=== PATIENT | male | born 1940 | race Caucasian/White ===

== ENCOUNTER → 2018-12-23 13:29 | Outpatient (CLI) | payer MEDICARE, OTHER, SELFPAY ==
--- NOTE | 2018-12-23 | DI.CT.S_ITS ---
PROCEDURE: CT ABDOMEN PELVIS WO/W CON INDICATIONS: Elevated PSA. Gross hematuria TECHNIQUE: Optional 5 mm thick noncontrast images acquired from the diaphragm to the symphysis pubis. After the administration of intravenous contrast, 5 mm thick images acquired from the diaphragm to the symphysis pubis after a 10-minute delay. 2 mm thick coronal and sagittal reformats were then performed of the kidneys and ureters. For radiation dose reduction, the following was used: automated exposure control, adjustment of mA and/or kV according to patient size. COMPARISON: [facility], CT, KIDNEY/ URETER/BLADDER, 05/31/2014, 12:44. FINDINGS: Image quality: Excellent. Lung bases: Lung bases are clear. Heart size is normal. Urinary system: Both kidneys are normal in size, without hydronephrosis. Punctate, nonobstructing intrarenal calcification present in the lower pole of right kidney. No perinephric fat stranding. There is normal bilateral renal enhancement. Renal calyces appear normal in morphology when filled with contrast. Opacified portions of both ureters demonstrate normal caliber. Bladder wall is minimally thickened. No calcified bladder stones. The prostate gland is enlarged measuring 6.2 x 5.1 x 6.2 cm and indents upon the base of the bladder. Other solid organs: Liver is normal in size and enhancement. Gallbladder is normal. Biliary system is non dilated. Pancreas enhances normally. Spleen is normal in size and enhancement. No adrenal nodules. Peritoneum and bowel: Bowel loops demonstrate normal wall thickness and caliber. Normal appendix. No free fluid or air. Nodes and vessels: No retroperitoneal or mesenteric adenopathy by size criteria. Aorta and inferior vena cava are normal in size. Mild abdominal aortic calcification. Abdominal wall: No ventral hernias. Pelvis: No pathologic free pelvic fluid. No inguinal hernias or adenopathy. Bones: No suspicious bony lesions. Moderate degenerative endplate sclerosis in the lumbar spine with disc height loss at L2-3, L3-4, and L4-5. No vertebral body compression fractures. IMPRESSION: 1. Prostatomegaly indenting on the base of the urinary bladder. 2. Nonobstructing right intrarenal punctate calcification. No other urinary stones. 3. No evidence of urinary soft tissue mass. 4. Lumbar spine degeneration. Dictated by: Darlene Morton M.D. on 12/23/2018 at 15:41 Approved by: Darlene Morton M.D. on 12/23/2018 at 15:49
== END ==
PROVIDERS: PCP Internal Medicine; Visit Provider Internal Medicine
DX: R97.20 Elevated prostate specific antigen [PSA] (principal); R31.0 Gross hematuria; N40.0 Benign prostatic hyperplasia without lower urinary tract symptoms; M47.816 Spondylosis without myelopathy or radiculopathy, lumbar region; N28.89 Other specified disorders of kidney and ureter
CPT/HCPCS: 74178; Q9967

== ENCOUNTER 2019-05-06 10:32 | Emergency (ER) | payer MEDICARE, OTHER, SELFPAY ==
[2019-05-06 10:32] VITALS: BP 179/87; PULSE 73; RESP 14; TEMP 36.7; O2SAT 98
--- NOTE | 2019-05-06 10:40 | DI.RAD.S_ITS ---
PROCEDURE: XR CHEST 1V INDICATIONS: TIA TECHNIQUE: One view of the chest was acquired. COMPARISON: [facility], , CHEST 2 VIEW, 06/12/2014, 10:46. FINDINGS: Surgical changes and devices: None. Lungs and pleura: Lungs are clear. No pleural effusions or pneumothorax. Mediastinum: Mediastinal contours appear normal. Heart size is normal. Bones and chest wall: No suspicious bony lesions. Overlying soft tissues appear unremarkable. IMPRESSION: No acute pulmonary process. Dictated by: Jerri Fernandez M.D. on 05/06/2019 at 11:02 Approved by: Jerri Fernandez M.D. on 05/06/2019 at 11:02
--- NOTE | 2019-05-06 10:40 | DI.CT.S_ITS ---
PROCEDURE: CT HEAD/BRAIN WO CON INDICATIONS: TIA transient loss of vision TECHNIQUE: Noncontrast 4.5 mm thick angled axial sections acquired from the foramen magnum to the vertex, with coronal and sagittal reformats. For radiation dose reduction, the following was used: automated exposure control, adjustment of mA and/or kV according to patient size. COMPARISON: None. FINDINGS: Image quality: Excellent. CSF spaces: Basal cisterns are patent. No extra-axial fluid collections. The ventricles are symmetric in size and shape. Brain: No intracranial bleeds or masses. There is cerebral volume loss for age, with resultant ventricular and sulcal prominence. There are mild periventricular and deep white matter chronic small vessel ischemic changes. There is intracranial internal carotid artery atherosclerosis. Skull and face: Calvarium and visualized facial bones appear intact, without suspicious lesions. Sinuses: Visualized sinuses and mastoids are clear. IMPRESSION: 1. Age related volume loss and mild small vessel ischemic change. 2. No evidence acute stroke, hemorrhage, or mass. Dictated by: Nathan Li M.D. on 05/06/2019 at 11:08 Approved by: Nathan Li M.D. on 05/06/2019 at 11:11
[2019-05-06 10:49] LABS: Add Manual Diff / Slide Review NO; Basophils Absolute Auto 0 /uL (0-100); Basophils Percent Auto 0.6 % (0-2); Eosinophils Absolute Auto 100 /uL (0-450); Eosinophils Percent Auto 1.1 % (2-4); Hematocrit 49.3 % (41-53); Hemoglobin 16.7 g/dL (13.5-17.5); Lymphocytes Absolute Auto 1100 /uL (1100-4500); Lymphocytes Percent Auto 21.4 % (25-40); Mean Corpuscular HGB Conc 33.9 % (30-36); Mean Corpuscular Hemoglobin 31.2 PG (26-34); Monocytes Absolute Auto 600 /uL (0-900); Monocytes Percent Auto 12.1 % (3-14); Neutrophils Absolute Auto 3400 /uL (1500-7000); Neutrophils Percent Auto 64.8 % (50-75); Platelet Count 173 X10^3/uL (150-400); Red Blood Cell Count 5.36 X10^6/uL (4.5-5.9); Red Cell Distribution Width 13.7 % (11.6-14.8); White Blood Cell Count 5.2 X10^3/uL (4.5-11.0)
[2019-05-06 10:56] LABS: Prothrombin Time 11.5 SECONDS (10.1-12.7)
--- NOTE | 2019-05-06 10:56 | ED.NEUROSD ---
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 One month ago the patient had decrease loss of vision in his right lower eye. It again happened 1 week ago. He had double vision last night in which 1 I was high in the other 1 was low. His symptoms have completely resolved. The patient has not been seen by his transport engineer since having his cataracts removed 1 year ago. He called his family physician today and was sent into the emergency department to be evaluated. He has never before had a stroke or glaucoma. However there is a family history of strokes and glaucoma. He has had no recent injury to his eye high and no pain in his eye. Balance has been off with mild disequilibrium. He has had no syncope. He denies a history of atrial fibrillation or a heart murmur. He is having no pain or discomfort. He denies a history of diabetes mellitus seizure previous stroke myocardial infarction COPD or asthma. He does not smoke cigarettes but has been exposed to a tremendous amount of secondhand smoke while working in the [employer]. He does not drink alcohol use any drugs. He denies a history of hepatitis, HIV, TB, exposure to stover virus or recent travel outside the [place] within the last 6 months. He has had no new cough or fever. He fell in February and did the splits but did not hit his head eyes or neck. He currently denies any headache visual loss diplopia. His symptoms have completely resolved since yesterday. He denies any nasal drainage sinus congestion sore throat shortness of breath cough chest pain irregular heartbeat palpitations dizziness abdominal pain nausea vomiting diarrhea or urinary symptoms. On Anticoagulants: No Related Data Home Medications Medication Instructions Recorded Confirmed Ranitidine Hydrochloride 75 mg PO QDAY #0 11/24/12 (RANITIDINE) aspirin 81 mg PO QDAY #0 11/24/12 hydrochlorothiazide 12.5 mg PO QDAY #0 11/24/12 lisinopril 5 mg PO QDAY #0 tab 11/24/12 simvastatin 80 mg PO QDAY #0 11/24/12 Allergies Allergy/AdvReac Type Severity Reaction Status Date / Time No Known Drug Allergies Allergy Verified 05/06/19 12:10 Review of Systems Review of Systems Narrative: Review of systems are all negative except for those mentioned in the history of present illness. Patient History Social History Smoking Status: Never smoker Smoking Status: Never smoker alcohol intake frequency: 0-2 drinks per day Substance Use Type: does not use Exam Narrative Exam Narrative: PHYSICAL EXAM: CONSTITUTIONAL: Awake, Alert, Oriented, Coherent, Cooperative in NAD. Does not appear toxic or ill. HEAD: AT/NC EENT: PERRL, FROM of eyes, no discharge, . No epistaxis or nasal drainage Oral mucosa is moist and pink, posterior pharynx is without erythema or exudate. NECK: Supple, no obvious JVD, Trachea is midline without stridor, no palpable LN or masses. SPINE: No gross deformity, no palpable tenderness of the cervical, thoracic, lumbar or sacral spine. No CVA tenderness. THORAX: No deformity, retractions, chest wall tenderness,. LUNGS: Clear with symmetrical breath sounds without respiratory distress HEART: Normal heart tones, regular rhythm and rate without murmur. ABDOMEN: Soft, non-tender,without guarding, rebound, rigidity or palpable mass. EXTREMITIES: No edema, cyanosis, deformity or tenderness. SKIN: No rash, bruising, petechiae or purpura. NEURO: Awake, alert, oriented, conversive, cranial nerves II-XII are symmetrical moves all 4 extremities and is ambulatory. There is no drift of his arms or his legs. [id number] is within normal limits. Rapid alternating motions and cerebellar functions are within normal limits. The patient's visual moreno are intact on confrontation. The patient has directing consensual light reflexes. Initial Vital Signs Initial Vital Signs: Vital Signs Temperature 98.1 F 05/06/19 10:32 Pulse Rate 73 05/06/19 10:32 Respiratory Rate 14 05/06/19 10:32 Blood Pressure 179/87 H 05/06/19 10:32 Pulse Oximetry 98 05/06/19 10:32 Course Course Course Narrative: 11:03 since all of the patient's symptoms have resolved the patient is being evaluated for a possible TIA versus the possibility of having an atypical migraine with his past history of migraines involving his arm eyes. 1245: The patient's CT scan of his head revealed age-related volume loss and mild small vessel ischemic changes as well as no evidence of an acute stroke hemorrhage or mass. The patient's chemistries are within normal limits. The patient has been asymptomatic since being here. The patient will be discharged home and advised to be seen in follow-up by his primary care physician and to be scheduled for carotid Dopplers and an echocardiogram of his heart as an outpatient. 12:53 since being in the emergency department the patient has been asymptomatic. The patient states that he has been asymptomatic since last night. Orders Ordered: ED Orders 05/06/19 10:40 CT head/brain wo con Stat XR chest 1V Stat EKG-12 Lead Stat 05/06/19 10:43 Complete Blood Count AUTO DIFF Stat Comprehensive Metabolic Panel Stat Erythrocyte Sedimentation Rate Stat Partial Thromboplastin Time Stat Prothrombin Time INR Stat Vital Signs Vital signs: Vital Signs - 8 hr 05/06/19 10:32 05/06/19 12:06 Temperature 98.1 F Pulse Rate 73 70 Respiratory Rate 14 20 Blood Pressure 179/87 H Blood Pressure [Left Arm] 126/68 Pulse Oximetry 98 95 MDM - Neuro Symptoms/Deficit Lab Data Result diagrams: 05/06/19 10:43 05/06/19 10:43 Labs: Lab Results 05/06/19 05/06/19 05/06/19 Range/Units 10:43 10:43 10:43 WBC 5.2 (4.5-11.0) X10^3/uL RBC 5.36 (4.5-5.9) X10^6/uL Hgb 16.7 (13.5-17.5) g/dL Hct 49.3 (41-53) % MCV 92.0 (80-100) fL MCH 31.2 (26-34) PG MCHC 33.9 (30-36) % RDW 13.7 (11.6-14.8) % Plt Count 173 (150-400) X10^3/uL Neut % (Auto) 64.8 (50-75) % Lymph % (Auto) 21.4 L (25-40) % [place] % (Auto) 12.1 (3-14) % Eos % (Auto) 1.1 L (2-4) % Baso % (Auto) 0.6 (0-2) % Neut # (Auto) 3400 (1010-0448) /uL Lymph # (Auto) 1100 (0888-9714) /uL [place] # (Auto) 600 (0-900) /uL Eos # (Auto) 100 (0-450) /uL Baso # (Auto) 0 (0-100) /uL ESR 3 (0-15) MM/HR PT 11.5 (10.1-12.7) SECONDS INR 1.0 (0.9-1.3) APTT 32 (26.4-36.2) SECONDS Sodium 137 (137-145) mmol/L Potassium 3.7 (3.4-5.1) mmol/L Chloride 101 (98-107) mmol/L Carbon Dioxide 28 (22-32) mmol/L BUN 22 H (9-20) mg/dL Creatinine 0.78 (0.66-1.25) mg/dL Estimated GFR > 60.0 (>60) mL/min BUN/Creatinine Ratio 28.2 H (6-22) Glucose 108 (80-110) mg/dL Calcium 10.5 H (8.4-10.2) mg/dL Total Bilirubin 0.8 (0.2-1.3) mg/dL AST 34 (17-59) IU/L ALT 32 (<50) IU/L Alkaline Phosphatase 88 (38-126) U/L Total Protein 7.6 (6.3-8.2) g/dL Albumin 4.6 (3.5-5.0) g/dL Globulin 3.0 (1.7-4.1) g/dL Albumin/Globulin Ratio 1.5 (1.0-2.8) ECG Data Attestation: I personally reviewed and interpreted this ECG as follows: Interpretation: The patient's EKG obtained on May 05 at 10:4 9:31 a.m. reveals a normal sinus rhythm with a ventricular rate of 75. The patient has very small R waves in leads V1 and in lead 2 III. There are nonspecific ST segment changes. There are no acute diagnostic changes. [place] is left QRS is 94 milliseconds duration. The patient has left ventricular hypertrophy by voltage criteria. Discharge Plan Departure Patient Disposition: Home Clinical Impression: Transient cerebral ischemia Qualifiers: Transient cerebral ischemia type: unspecified Qualified Code(s): G45.9 - Transient cerebral ischemic attack, unspecified Migraine Qualifiers: Migraine type: unspecified Status migrainosus presence: without status migrainosus Intractability: not intractable Qualified Code(s): G43.909 - Migraine, unspecified, not intractable, without status migrainosus Discharge Date/Time: 05/06/19 13:18 Instructions: DI for Migraine, DI for Transient Ischemic Attack Activity Restrictions/Additional Instructions: 1. Call and make a follow-up appointment with your primary care physician. You may need to be referred to neurology by your primary care physician for further evaluation. You may need to be scheduled for an echocardiogram of your heart as well as carotid Doppler studies. These can be obtained as an outpatient. 2. While you are having symptoms if you redevelop symptoms you need to return to the emergency department or proceed to the emergency department where you are. 3. Keep a log and diarrhea of your symptoms and when they occur and whether or not you have an associated headache. 4. Take 1 baby aspirin (81 mg) per day. 5. You need to call and make a follow-up appointment with your transport engineer to re-examine your retinas Prescriptions: No Action simvastatin 40 MG tablet 80 mg PO QDAY Qty: 0 RF: 0 hydrochlorothiazide 12.5 MG capsule 12.5 mg PO QDAY Qty: 0 RF: 0 lisinopril 5 MG tablet 5 mg PO QDAY Qty: 0 RF: 0 Ranitidine Hydrochloride (RANITIDINE) 75 mg PO QDAY Qty: 0 RF: 0 aspirin 81 MG tablet,delayed release (DR/EC) 81 mg PO QDAY Qty: 0 RF: 0 Referrals: Lj Hart MD [Primary Care Provider] -
[2019-05-06 10:58] LABS: PTT Partial Thromboplastin Tim 32 SECONDS (26.4-36.2)
[2019-05-06 11:00] LABS: Alanine Aminotransferase 32 IU/L (<50); Albumin 4.6 g/dL (3.5-5.0); Albumin Globulin Ratio 1.5 (1.0-2.8); Alkaline Phosphatase 88 U/L (38-126); Aspartate Aminotransferase 34 IU/L (17-59); BUN Creatinine Ratio 28.2 (6-22); Bilirubin Total 0.8 mg/dL (0.2-1.3); Blood Urea Nitrogen 22 mg/dL (9-20); Calcium 10.5 mg/dL (8.4-10.2); Carbon Dioxide 28 mmol/L (22-32); Chloride 101 mmol/L (98-107); Estimated Glomerular Filt Rate > 60.0 mL/min (>60); Glucose 108 mg/dL (80-110); HEMOLYSIS < 15 (0-50); Potassium 3.7 mmol/L (3.4-5.1); Sodium 137 mmol/L (137-145); Total Protein 7.6 g/dL (6.3-8.2)
[2019-05-06 11:12] LABS: Erythrocyte Sedimentation Rate 3 MM/HR (0-15)
[2019-05-06 12:06] VITALS: BP 126/68; PULSE 70; RESP 20; O2SAT 95
[2019-05-06 13:08] VITALS: BP 123/67; PULSE 63; RESP 18; O2SAT 99
== END 2019-05-06 13:18 | disposition home or self-care (01) ==
PROVIDERS: Emergency Provider Emergency Medicine; PCP Internal Medicine
DX: G45.9 Transient cerebral ischemic attack, unspecified (principal); G43.909 Migraine, unspecified, not intractable, without status migrainosus
CPT/HCPCS: 36415; 70450; 71045; 80053; 85025; 85610; 85651; 85730; 93005; 99285

== ENCOUNTER → 2019-05-17 07:54 | Outpatient (CLI) | payer MEDICARE, OTHER, SELFPAY ==
--- NOTE | 2019-05-17 | DI.ECHO.S_ITS ---
[facility]---------+ [facility] +---------+ : : [address] : : : : [id number] : : : : Phone: [phone] Echocardiogram Report + + :Name: RAD FERRIS Study Date: 05/17/2019 Height: 69 in : :[facility] Weight: 176 lb : : Gender: Male BSA: 2.0 m2 : :: 1940 Age: 78 yrs BP: 138/82 mmHg: :Reason For Study: Hypertension : :Ordering Physician: Dr. Bass : :Ryan Performed By: Kathryn Bailey : :Referring: KARI FRANCISCO : + + Interpretation Summary The left ventricle is normal in size, wall thickness, and systolic function without any focal wall motion abnormalities with the ejection fraction visually estimated to be 55-60%. Diastolic parameters suggest probable normal left ventricular diastolic function and normal filling pressures. The right ventricle is normal in size and function. Pulmonary artery pressures cannot be estimated because of the lack of a measurable TR jet velocity but the IVC suggests a CVP of around 3 mmHg. Both atria are normal in size. There is mild mitral regurgitation. There is mild aortic valve sclerosis with mild to moderate aortic regurgitation but no aortic valve stenosis. There is no other significant valvular heart disease. Procedure: A two-dimensional transthoracic echocardiogram with color flow and Doppler was performed. The study quality was technically adequate. There is no prior echocardiogram noted for this patient. The patient was in normal sinus rhythm during the exam. Left Ventricle: The left ventricle is normal in size, wall thickness, and systolic function without any focal wall motion abnormalities. The ejection fraction is estimated to be 55-60%. Diastolic parameters suggest probable normal left ventricular diastolic function and normal filling pressures. Right Ventricle: The right ventricle is normal in size and function. Atria: Both atria are normal in size. Mitral Valve: The mitral valve is normal in structure and function. The mitral valve leaflets appear mildly thickened, but open well. There is mild mitral regurgitation. Aortic Valve: The aortic valve is trileaflet. There is mild aortic valve sclerosis. The aortic valve opens well. There is no aortic valve stenosis. There is mild to moderate aortic regurgitation. Tricuspid Valve: The tricuspid valve is normal in structure and function. There is a trace or physiologic amount of tricuspid regurgitation. Pulmonary artery pressures cannot be estimated because of the lack of a measurable TR jet velocity but the IVC suggests a CVP of around 3 mmHg. Pulmonic Valve: The pulmonic valve is normal in structure and function. There is no pulmonic valvular regurgitation. There is no other significant valvular heart disease. Great Vessels: The aortic root is normal size. The ascending aorta is normal in size. The IVC is of normal diameter and collapses greater than 50% with a sniff. This suggests a low right atrial pressure of 3 mm Hg. Pericardium/ Pleura There is no pericardial effusion. There is no pleural effusion. MMode/2D Measurements & Calculations LVIDd: 4.6 cm LVOT diam: 2.2 cm LVIDs: 3.7 cm Ao root diam: 3.4 cm FS: 20.4 % asc Aorta Diam: 3.3 cm EPSS: 0.68 cm IVSd: 0.86 cm LVPWd: 0.85 cm LV pineda. diameter/BSA (cm/m^2): 2.4 LV sys. diameter/BSA (cm/m^2): 1.9 LA A2 area: 19.5 cm2 RA long axis: 5.3 cm LA A4 area: 14.1 cm2 RA area: 15.5 cm2 LA length (vol): 4.7 cm RA vol: 38.6 ml LA vol: 49.3 ml RA : 19.7 ml/m2 LA vol index: 25.2 ml/m2 IVC diam: 0.90 cm RVD1 (basal): 3.6 cm TAPSE: 2.4 cm Doppler Measurements & Calculations Ao V2 max: 174.3 cm/sec LVOT Max Nicola: 121.2 cm/sec Ao V2 mean: 107.6 cm/sec LV V1 max P.9 mmHg Ao max P.2 mmHg LV V1 VTI: 22.6 cm Ao mean P.6 mmHg AUDI(I,D): 2.8 cm2 Ao V2 VTI: 31.3 cm AUDI(V,D): 2.7 cm2 sev ratio: 0.72 AUDI indexed to BSA (cm^2/m^2): 1.4 AI P1/2t: 450.7 msec AI dec slope: 238.6 cm/sec2 MV E max nicola: 71.7 cm/sec TR max nicola: 193.5 cm/sec MV A max nicola: 92.7 cm/sec TR max P.0 mmHg MV E/A: 0.77 PA V2 max: 80.1 cm/sec Med Peak E' Nicola: 6.3 cm/sec PA V2 mean: 48.8 cm/sec E/E' med: 11.4 PA mean P.1 mmHg Lat Peak E' Nicola: 8.2 cm/sec PA Accel Time: 0.12 sec E/E' lat: 8.7 E/e' average: 10.0 MV dec time: 0.30 sec MV P1/2t: 89.0 msec MV P1/2t max nicola: 72.1 cm/sec SV(LVOT): 88.2 ml MVA(P1/2t): 2.5 cm2 Reading Physician:PAKO
--- NOTE | 2019-05-17 | DI.US.S_ITS ---
PROCEDURE: US CAROTID DOPPLER BI INDICATIONS: HYPERTENSION, TIA TECHNIQUE: Color and pulse Doppler interrogation was performed of both carotid systems, with image documentation and velocity measurements. COMPARISON: None. FINDINGS: Stenosis calculations are based on SRU (Society of Radiologists in Ultrasound) criteria. Right side: Brachial blood pressure: 125/65 mm Hg. Common carotid artery peak systolic velocity: 135 cm/sec. Internal carotid artery peak systolic velocity: 66 cm/sec. Internal carotid artery end diastolic velocity: 27 cm/sec. External carotid artery peak systolic velocity: 81 cm/sec. ICA/CCA peak systolic ratio: 0.5. Urban scale imaging description: Minimal soft plaque Percent internal carotid artery stenosis: Less than 50% stenosis. Vertebral artery: Flow direction is antegrade. Left side: Brachial blood pressure: 137/71 mm Hg. Common carotid artery peak systolic velocity: 130 cm/sec. Internal carotid artery peak systolic velocity: 74 cm/sec. Internal carotid artery end diastolic velocity: 26 cm/sec. External carotid artery peak systolic velocity: 92 cm/sec. ICA/CCA peak systolic ratio: 0.6. Urban scale imaging description: Mild soft plaque Percent internal carotid artery stenosis: Less than 50% stenosis. Vertebral artery: Flow direction is antegrade. IMPRESSION: Less than 50% stenosis at the proximal internal carotid arteries bilaterally. Only a small degree of soft plaque is identified in each proximal internal carotid. Dictated by: Andrade Hemphill M.D. on 05/17/2019 at 10:16 Approved by: Andrade Hemphill M.D. on 05/17/2019 at 10:18
== END ==
PROVIDERS: PCP Internal Medicine; Referring Provider Internal Medicine; Visit Provider Internal Medicine
DX: I08.0 Rheumatic disorders of both mitral and aortic valves (principal); G45.9 Transient cerebral ischemic attack, unspecified; I10 Essential (primary) hypertension
CPT/HCPCS: 93306; 93880

== ENCOUNTER → 2019-12-06 08:38 | Outpatient (CLI) | payer MEDICARE, OTHER, SELFPAY ==
[2019-12-06 10:17] LABS: Add Manual Diff / Slide Review NO; Basophils Absolute Auto 0 /uL (0-100); Basophils Percent Auto 0.6 % (0-2); Eosinophils Absolute Auto 100 /uL (0-450); Eosinophils Percent Auto 2.3 % (2-4); Hematocrit 47.5 % (41-53); Hemoglobin 15.7 g/dL (13.5-17.5); Lymphocytes Absolute Auto 900 /uL (1100-4500); Lymphocytes Percent Auto 21.1 % (25-40); Mean Corpuscular HGB Conc 33.1 % (30-36); Mean Corpuscular Hemoglobin 30.8 PG (26-34); Mean Corpuscular Volume 92.9 fL (80-100); Monocytes Absolute Auto 500 /uL (0-900); Monocytes Percent Auto 12.7 % (3-14); Neutrophils Absolute Auto 2700 /uL (1500-7000); Neutrophils Percent Auto 63.3 % (50-75); Platelet Count 152 X10^3/uL (150-400); Red Blood Cell Count 5.11 X10^6/uL (4.5-5.9); Red Cell Distribution Width 13.8 % (11.6-14.8); White Blood Cell Count 4.2 X10^3/uL (4.5-11.0)
[2019-12-06 10:28] LABS: Alanine Aminotransferase 30 IU/L (<50); Albumin 4.2 g/dL (3.5-5.0); Albumin Globulin Ratio 1.8 (1.0-2.8); Alkaline Phosphatase 73 U/L (38-126); Aspartate Aminotransferase 32 IU/L (17-59); BUN Creatinine Ratio 30.9 (6-22); Bilirubin Total 0.7 mg/dL (0.2-1.3); Blood Urea Nitrogen 25 mg/dL (9-20); Calcium 10.2 mg/dL (8.4-10.2); Carbon Dioxide 31 mmol/L (22-32); Chloride 101 mmol/L (98-107); Cholesterol 174 mg/dL (140-199); Estimated Glomerular Filt Rate > 60.0 mL/min (>60); Globulin 2.3 g/dL (1.7-4.1); Glucose 95 mg/dL (80-110); HDL Cholesterol 70 mg/dL (40-60); HEMOLYSIS < 15 (0-50); LDL Cholesterol Calculated 80 mg/dL (<100); Potassium 4.1 mmol/L (3.4-5.1); Sodium 136 mmol/L (137-145); Total Protein 6.5 g/dL (6.3-8.2); Triglycerides 122 mg/dL (35-150)
[2019-12-06 10:58] LABS: Prostate Specific Antigen 2.58 ng/mL (0.10-4.00)
== END ==
PROVIDERS: PCP Internal Medicine; Referring Provider Specialist; Visit Provider Internal Medicine
DX: I10 Essential (primary) hypertension (principal); E78.2 Mixed hyperlipidemia; K63.5 Polyp of colon; N40.0 Benign prostatic hyperplasia without lower urinary tract symptoms
CPT/HCPCS: 36415; 80053; 80061; 84153; 85025

== ENCOUNTER → 2020-08-07 13:25 | Outpatient (CLI) | payer OTHER, SELFPAY ==
[2020-08-07 15:20] LABS: Prostate Specific Antigen 2.13 ng/mL (0.10-4.00)
== END ==
PROVIDERS: PCP Internal Medicine; Referring Provider Specialist; Visit Provider Specialist
DX: N40.0 Benign prostatic hyperplasia without lower urinary tract symptoms (principal)
CPT/HCPCS: 36415; 84153

== ENCOUNTER → 2021-09-17 09:53 | Outpatient (CLI) | payer MEDICARE, OTHER, SELFPAY ==
[2021-09-17 11:38] LABS: Prostate Specific Antigen 2.23 ng/mL (0.10-4.00)
== END ==
PROVIDERS: PCP Internal Medicine; Referring Provider Specialist; Visit Provider Specialist
DX: R97.20 Elevated prostate specific antigen [PSA] (principal)
CPT/HCPCS: 36415; 84153

== ENCOUNTER → 2022-11-19 10:15 | Outpatient (CLI) | payer MEDICARE, OTHER, SELFPAY ==
[2022-11-19 11:54] LABS: Prostate Specific Antigen 2.38 ng/mL (0.10-4.00)
== END ==
PROVIDERS: PCP Internal Medicine; Referring Provider Specialist; Visit Provider Specialist
DX: R97.20 Elevated prostate specific antigen [PSA] (principal)
CPT/HCPCS: 36415; 84153

== ENCOUNTER → 2023-02-04 09:27 | Outpatient (CLI) | payer MEDICARE, OTHER, SELFPAY ==
[2023-02-06 07:40] LABS: PSA Free % 18.6 % (.); PSA, Total 1.4 ng/mL (0.0-4.0)
== END ==
PROVIDERS: PCP Internal Medicine; Referring Provider Specialist; Visit Provider Specialist
DX: R97.20 Elevated prostate specific antigen [PSA] (principal)
CPT/HCPCS: 36415; 84153; 84154

== ENCOUNTER → 2023-02-05 15:33 | Outpatient (CLI) | payer MEDICARE, OTHER, SELFPAY ==
--- NOTE | 2023-02-05 15:35 | DI.MRI.S_ITS ---
PROCEDURE: MR PELIS WO/W CON INDICATIONS: Benign Prostatic Hyperplasia TECHNIQUE: Coronal HASTE, axial T1 FSE with fat saturation, 3-plane nonbreath-hold T2 FSE. After the administration of contrast, dynamic axial, delayed axial and coronal VIBE or 2-D FLASH with fat saturation through the pelvis. Diffusion weighted imaging and ADC was performed. COMPARISON: None. FINDINGS: Image quality: Diffusion weighted and dynamic contrast enhanced images are diagnostic. Prostate: Gland size is 5.8 x 4.4 x 5.6 cm; ellipsoid gland volume is 74 mL. Nodular hypertrophy of the transition zone and nodular enlargement of the median lobe indenting on the base of the bladder. Lesion 1: Indistinct area of clustered nodular foci in the left posterior transition zone at the mid gland to base level, series 6, image 13, sagittal series 8, image 16. Size: Overall region measures 1.5 cm. T2W signal: Hypointense. DWI signal: Moderately hyperintense ADC signal: Moderately hypointense Enhancement: No Extracapsular extension: No. No neurovascular involvement. PI-RADS score: 5 Lesion 2: A nodular focus in the posterior gland the subcapsular base to the left of midline demonstrates peripheral T1 signal, T2 hypointensity, and mild restricted diffusion. PI-RADS 3 Lesion 3: There is indistinct, multifocal mild T2 hypointensity across the anterior base of the prostate gland with corresponding mild diffusion hyperintensity and moderate ADC hypointensity. There is artifact distorting the right aspect of the prostate gland on these images. These lesions are considered PI-RADS 3. Genitourinary system: Bladder wall thickness is normal. Distal ureters are non distended. Bowel and peritoneum: No pathologic free pelvic fluid. Inferior colon and small bowel loops are normal in caliber. Nodes and vessels: No pelvic or inguinal adenopathy by size criteria. Iliac vessels are normal in caliber. Soft tissues: No inguinal hernias. Bones: Marrow demonstrates normal overall signal, without lesions to suggest metastases. IMPRESSION: 1. PI-RADS 5 lesion in the left posterior transition zone. 2. PI-RADS 3 lesions at the left prostate base transition zone. 3. No pelvic lymphadenopathy by size criteria. No aggressive osseous abnormality. Dictated by: Darlene Morton M.D. on 02/06/2023 at 11:15 Approved by: Darlene Morton M.D. on 02/06/2023 at 11:42
== END ==
PROVIDERS: PCP Internal Medicine; Referring Provider Specialist; Visit Provider Specialist
DX: N40.1 Benign prostatic hyperplasia with lower urinary tract symptoms (principal); N13.8 Other obstructive and reflux uropathy; N42.9 Disorder of prostate, unspecified
CPT/HCPCS: 72197; A9579

== ENCOUNTER → 2023-08-11 09:44 | Outpatient (CLI) | payer MEDICARE, OTHER, SELFPAY ==
[2023-08-12 07:36] LABS: PSA Free % 23.3 % (.); PSA, Total 5.1 ng/mL (0.0-4.0)
== END ==
PROVIDERS: PCP Internal Medicine; Referring Provider Specialist; Visit Provider Specialist
DX: R97.20 Elevated prostate specific antigen [PSA] (principal)
CPT/HCPCS: 36415; 84153; 84154